=== PATIENT | male | born 1960 | race African-American/Black ===

== ENCOUNTER 2017-08-15 14:33 | Outpatient (CLI) | payer OTHER ==
--- NOTE | 2017-08-15 15:01 | RAD ---
LUMBAR SPINE THREE VIEWS: History: Low back pain. Comparison: None. FINDINGS: Five non-rib bearing lumbar type vertebrae. 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 Normal narrow ing L5-S1 and L4-5. Mild vascular calcifications of the aorta. No acute fracture or malalignment. There are surgical clips projecting over the left upper quadrant of the abdomen. There is a punctate calcification projecting over the right renal pelvis. IMPRESSION: 1. Mild spondylosis. No acute fracture or malalignment. 2. Punctate calcification projecting over the right renal shadow could be vascular in origin, given a similar location of a renal artery calcification on the prior 03-16-17 exam. POS: [facility]
== END 2017-08-15 14:34 | disposition home or self-care (01) ==
LOC: RAD-FRANK 14:33
PROVIDERS: ATTEND Internal Medicine
DX: M54.9 Dorsalgia, unspecified (principal); M47.816 Spondylosis without myelopathy or radiculopathy, lumbar region
CPT/HCPCS: 72100

== ENCOUNTER 2021-06-08 20:23 | Emergency (ER) | payer OTHER ==
[2021-06-08 23:48] LABS: #Lymphocytes 1.3 thou/uL (1.20-3.40); #Monocytes 0.8 thou/uL (0.11-0.59); #Neutrophils 5.1 thou/uL (1.40-6.50); %Basophils 0.1 % (0.0-1.0); %Eosinophils 0.4 % (0.0-10.0); %Lymphocytes 18.4 % (21.0-51.0); %Monocytes 10.8 % (0.0-10.0); %Neutrophils 70.3 % (42.0-75.0); Hemoglobin 13.9 g/dL (14.0-18.0); Mean Corpuscular Hemoglobin 32.6 pg (27.0-31.0); Mean Corpuscular Volume 95.7 fL (78.0-98.0); Mean Platelet Volume 7.9 fL (7.4-10.4); Platelet Count 233 thou/uL (130-400); Red Blood Cell (RBC) Count 4.28 mill/uL (4.70-6.10); White Blood Cell (WBC) Count 7.3 thou/uL (4.8-10.8)
[2021-06-09 00:12] LABS: ALT (SGPT) 15 U/L (8-55); AST (SGOT) 22 U/L (5-34); Albumin 4.4 g/dL (3.5-5.0); Alkaline Phosphatase 90 U/L (40-110); Anion Gap 12 mmol/L (10-20); BUN (Urea Nitrogen) 27 mg/dL (8.4-25.7); Bilirubin, Total 0.5 mg/dL (0.2-1.2); Calc. Creatinine Clearance 0 mL/min (70-130); Calcium 10.7 mg/dL (7.8-10.44); Carbon Dioxide 29 mmol/L (22-29); Chloride 102 mmol/L (98-107); Globulin 4.8 g/dL (2.4-3.5); Glucose 96 mg/dL (70-105); Potassium 4.3 mmol/L (3.5-5.1); Protein, Total 9.2 g/dL (6.0-8.3); Sodium 139 mmol/L (136-145)
[2021-06-09] MEDS ORDERED: Acetaminophen 500 MG TAB ONE (00:15)
== END 2021-06-09 02:59 | disposition home or self-care (01) ==
LOC: ERS 20:23
DX: I73.9 Peripheral vascular disease, unspecified (principal)
CPT/HCPCS: 36415; 80053; 85025; 85379; 93923

== ENCOUNTER 2021-06-10 08:08 | Outpatient (CLI) | payer MEDICARE ==
[2021-06-10] MEDS ORDERED: Iopamidol 370 76% 100 ML VIAL ONE (11:08)
== END 2021-06-10 08:09 | disposition home or self-care (01) ==
LOC: CT 08:08
PROVIDERS: ATTEND Thoracic Surgery (Cardiothoracic Vascular Surgery)
DX: I25.110 Atherosclerotic heart disease of native coronary artery with unstable angina pectoris (principal); T82.9XXA Unspecified complication of cardiac and vascular prosthetic device, implant and graft, initial encounter; K91.89 Other postprocedural complications and disorders of digestive system; I77.9 Disorder of arteries and arterioles, unspecified
CPT/HCPCS: 75635; Q9967

== ENCOUNTER 2021-06-16 12:45 | Inpatient (IN) | payer MEDICARE, MEDICAID ==
[2021-06-16 12:06] LABS: Hemoglobin 12.7 g/dL (13.5-17.5); Mean Corpuscular Hemoglobin 31.3 pg (27.0-33.0); Mean Corpuscular Volume 94.8 fl (81.2-95.1); Mean Platelet Volume 9.8 fl (7.4-10.4); Platelet Count 284 10x3/uL (150-450); RBC Distribution Width 11.4 % (11.5-14.5); Red Blood Cell (RBC) Count 4.06 10x6/uL (4.32-5.72); White Blood Cell (WBC) Count 7.7 10x3/uL (3.5-10.5)
[2021-06-16 12:15] LABS: Anion Gap 17 mmol/L (10-20); BUN (Urea Nitrogen) 17 mg/dL (8.4-25.7); Calc. Creatinine Clearance 0 mL/min (70-130); Calcium 10.8 mg/dL (7.8-10.44); Carbon Dioxide 24 mmol/L (22-29); Chloride 107 mmol/L (98-107); Glucose 119 mg/dL (70-105); Potassium 4.8 mmol/L (3.5-5.1); Sodium 143 mmol/L (136-145)
[2021-06-20 11:45] VITALS: BMI 27.0
[2021-06-21] MEDS ORDERED: Protamine Sulfate 50 MG/5 ML VIAL ONE (08:33)
[2021-06-21] MEDS ORDERED: Heparin 5,000 UNITS/ML VIAL ONE (08:33)
[2021-06-21] MEDS ORDERED: Bupivacaine PF 0.5% 30 ML VIAL ONE (08:33)
[2021-06-21] MEDS ORDERED: EPINEPHrine 1 MG/ML AMP ONE (08:33)
[2021-06-21] MEDS ORDERED: Dexamethasone 4 mg/ml Vial ONE (08:33)
[2021-06-21] MEDS ORDERED: Midazolam HCl 2 mg/2 ml Vial ONE (10:23)
[2021-06-21] MEDS ORDERED: Fentanyl 100 MCG/2 ML VIAL ONE ×5 (10:23→14:06)
[2021-06-21] MEDS ORDERED: Ondansetron PF 4 MG/2 ML Vial ONE (10:24)
[2021-06-21] MEDS ORDERED: PROPOFOL 200 MG/20 ML VIAL ONE (10:24)
[2021-06-21] MEDS ORDERED: PHENYLEPHRINE-NS 100 MCG/ML 10 ML SYRINGE ONE ×2 (10:24→11:48)
[2021-06-21] MEDS ORDERED: Dexamethasone 20 MG/5 ML VIAL ONE (10:24)
[2021-06-21] MEDS ORDERED: Promethazine HCl 25 MG/ML VIAL IM PRN ×3 (13:33→15:32)
[2021-06-21] MEDS ORDERED: PACU-Morphine 4MG/ML VIAL SLOW IVP PRN (13:33)
[2021-06-21] MEDS ORDERED: Promethazine HCl 25 MG/ML VIAL IVPB PRN (13:33)
[2021-06-21] MEDS ORDERED: Morphine 4 MG/ML VIAL ONE (14:06)
[2021-06-21] MEDS ORDERED: Fentanyl 100 MCG/2 ML VIAL SLOW IVP PRN ×2 (15:32)
[2021-06-21] MEDS ORDERED: HYDROcodone/Acetaminophen 5/325 mg Tablet PO PRN ×2 (15:32)
[2021-06-21] MEDS ORDERED: Ondansetron PF 4 MG/2 ML Vial IVP PRN (15:32)
[2021-06-21] MEDS ORDERED: Acetaminophen 325 MG TAB PO PRN (15:32)
[2021-06-21] MEDS: Sodium Chloride 0.9% 1,000 ML IV SCH (17:04)
[2021-06-21] MEDS ORDERED: Lisinopril 5 MG TAB PO SCH (17:15)
[2021-06-21] MEDS ORDERED: Metoprolol Tartrate 25 MG TAB PO SCH (17:15)
[2021-06-21] MEDS: HYDROcodone/Acetaminophen 5/325 mg Tablet PO PRN ×2 (17:42→21:36)
[2021-06-21] MEDS: CEFAZOLIN 2 GM in Premix Bag 1 BAG IVPB SCH (17:43)
[2021-06-21] MEDS: Metoprolol Tartrate 25 MG TAB PO SCH (20:45)
[2021-06-21] MEDS: Atorvastatin Calcium 20 MG TAB PO SCH (20:46)
[2021-06-21] MEDS: Isosorbide Dinitrate 5 MG TAB PO SCH (20:46)
[2021-06-22] MEDS: Sodium Chloride 0.9% 1,000 ML IV SCH (00:11)
[2021-06-22] MEDS: CEFAZOLIN 2 GM in Premix Bag 1 BAG IVPB SCH ×2 (00:12→09:40)
[2021-06-22] MEDS: HYDROcodone/Acetaminophen 5/325 mg Tablet PO PRN ×3 (03:47→21:01)
[2021-06-22 07:39] LABS: #Lymphocytes 1.6 thou/uL (1.20-3.40); #Monocytes 1.3 thou/uL (0.11-0.59); #Neutrophils 8.6 thou/uL (1.40-6.50); %Basophils 0.2 % (0.0-1.0); %Eosinophils 0.1 % (0.0-10.0); %Lymphocytes 13.7 % (21.0-51.0); %Monocytes 10.9 % (0.0-10.0); Hemoglobin 11.2 g/dL (14.0-18.0); Mean Corpuscular HGB CONC 32.9 g/dL (32.0-36.0); Mean Corpuscular Hemoglobin 31.4 pg (27.0-31.0); Mean Corpuscular Volume 95.4 fL (78.0-98.0); Mean Platelet Volume 7.2 fL (7.4-10.4); Platelet Count 245 thou/uL (130-400); RBC Distribution Width 10.6 % (11.5-14.5); Red Blood Cell (RBC) Count 3.57 mill/uL (4.70-6.10); White Blood Cell (WBC) Count 11.4 thou/uL (4.8-10.8)
[2021-06-22] MEDS ORDERED: Aspirin 325 mg Enteric Coated Tablet PO SCH (09:00)
[2021-06-22] MEDS: Aspirin Chewable 81 MG TAB PO SCH (09:39)
[2021-06-22] MEDS: Metoprolol Tartrate 25 MG TAB PO SCH ×2 (09:40→21:00)
[2021-06-22] MEDS: Clopidogrel Bisulfate 75 MG TAB PO SCH (09:40)
[2021-06-22] MEDS: Isosorbide Dinitrate 5 MG TAB PO SCH ×2 (09:40→21:00)
[2021-06-22] MEDS: Lisinopril 5 MG TAB PO SCH (09:41)
[2021-06-22] MEDS: Atorvastatin Calcium 20 MG TAB PO SCH (21:00)
[2021-06-23] MEDS: HYDROcodone/Acetaminophen 5/325 mg Tablet PO PRN ×2 (03:23→08:26)
[2021-06-23 07:04] LABS: #Lymphocytes 1.5 thou/uL (1.20-3.40); #Monocytes 1.6 thou/uL (0.11-0.59); #Neutrophils 14.6 thou/uL (1.40-6.50); %Basophils 0.1 % (0.0-1.0); %Eosinophils 0.1 % (0.0-10.0); %Lymphocytes 8.5 % (21.0-51.0); %Monocytes 8.8 % (0.0-10.0); %Neutrophils 82.5 % (42.0-75.0); Hemoglobin 10.7 g/dL (14.0-18.0); Mean Corpuscular HGB CONC 32.6 g/dL (32.0-36.0); Mean Corpuscular Hemoglobin 30.8 pg (27.0-31.0); Mean Corpuscular Volume 94.4 fL (78.0-98.0); Mean Platelet Volume 7.4 fL (7.4-10.4); Platelet Count 256 thou/uL (130-400); RBC Distribution Width 10.6 % (11.5-14.5); Red Blood Cell (RBC) Count 3.48 mill/uL (4.70-6.10); White Blood Cell (WBC) Count 17.7 thou/uL (4.8-10.8)
[2021-06-23] MEDS: Metoprolol Tartrate 25 MG TAB PO SCH (08:25)
[2021-06-23] MEDS: Clopidogrel Bisulfate 75 MG TAB PO SCH (08:25)
[2021-06-23] MEDS: Lisinopril 5 MG TAB PO SCH (08:25)
[2021-06-23] MEDS: Isosorbide Dinitrate 5 MG TAB PO SCH (08:36)
[2021-06-23] MEDS: Aspirin Chewable 81 MG TAB PO SCH (08:36)
[2021-06-23 13:00] VITALS: BP 159/70; TEMP 97.8
== END 2021-06-23 15:33 | disposition home or self-care (01) | DRG 253 ==
LOC: SURG A 06-21 08:03 → EDSTATUS 06-21 12:45 → SURG B 06-21 15:24
PROVIDERS: ADMIT Thoracic Surgery (Cardiothoracic Vascular Surgery); ATTEND Thoracic Surgery (Cardiothoracic Vascular Surgery)
PROC: 041K09M Bypass Right Femoral Artery to Peroneal Artery with Autologous Venous Tissue, Open Approach (ICD-10-PCS; principal; 2021-06-21)
PROC: 06BP0ZZ Excision of Right Saphenous Vein, Open Approach (ICD-10-PCS; 2021-06-21)
PROC: 04CK0ZZ Extirpation of Matter from Right Femoral Artery, Open Approach (ICD-10-PCS; 2021-06-21)
PROC: 04CM0ZZ Extirpation of Matter from Right Popliteal Artery, Open Approach (ICD-10-PCS; 2021-06-21)
DX: T82.868A Thrombosis due to vascular prosthetic devices, implants and grafts, initial encounter (principal); I74.3 Embolism and thrombosis of arteries of the lower extremities; Y83.2 Surgical operation with anastomosis, bypass or graft as the cause of abnormal reaction of the patient, or of later complication, without mention of misadventure at the time of the procedure; I10 Essential (primary) hypertension; E78.5 Hyperlipidemia, unspecified; I25.2 Old myocardial infarction; Z95.810 Presence of automatic (implantable) cardiac defibrillator; Z87.891 Personal history of nicotine dependence; Z79.899 Other long term (current) drug therapy
CPT/HCPCS: 36415; 80048; 85025; 85027; 86850; 86900; 86901; J0171; J0690; J1100; J1642; J1644; J2250; J2270; J2405; J2704; J2720; J3010; J7050; S0020

== ENCOUNTER 2021-06-28 13:26 | Inpatient (IN) | payer MEDICARE, MEDICAID ==
[2021-06-28 16:21] LABS: Hemoglobin 9.4 g/dL (14.0-18.0); Mean Corpuscular HGB CONC 32.7 g/dL (32.0-36.0); Mean Corpuscular Hemoglobin 31.2 pg (27.0-31.0); Mean Corpuscular Volume 95.6 fL (78.0-98.0); Platelet Count 440 thou/uL (130-400); RBC Distribution Width 11.3 % (11.5-14.5); Red Blood Cell (RBC) Count 3.02 mill/uL (4.70-6.10); White Blood Cell (WBC) Count 28.4 thou/uL (4.8-10.8)
[2021-06-28 16:31] LABS: INR-International Normal Ratio 1.1; Prothrombin Time 14.4 sec (12.0-14.7)
[2021-06-28 16:40] LABS: ALT (SGPT) 91 U/L (8-55); AST (SGOT) 247 U/L (5-34); Albumin 3.8 g/dL (3.5-5.0); Alkaline Phosphatase 111 U/L (40-110); Anion Gap 16 mmol/L (10-20); BUN (Urea Nitrogen) 30 mg/dL (8.4-25.7); Bilirubin, Total 0.9 mg/dL (0.2-1.2); Calc. Creatinine Clearance 0 mL/min (70-130); Calcium 9.3 mg/dL (7.8-10.44); Carbon Dioxide 25 mmol/L (22-29); Chloride 100 mmol/L (98-107); Globulin 4.8 g/dL (2.4-3.5); Glucose 110 mg/dL (70-105); Potassium 4.1 mmol/L (3.5-5.1); Protein, Total 8.6 g/dL (6.0-8.3); Sodium 137 mmol/L (136-145)
[2021-06-28 16:48] LABS: Band 24 % (5-11); Lymphocytes 8 % (21-51); MDiff Complete? YES; Monocytes 8 % (0-10); Neutrophil 60 % (42-75); Platelet Morphology Comment Appears Increased; RBC Morphology Normal
[2021-06-28 17:29] LABS: SARS-CoV-2 NAA Rapid Test Not Detected (NotDetected)
[2021-06-28] MEDS ORDERED: Ondansetron ODT 4 MG TAB PO PRN (18:26)
[2021-06-28] MEDS ORDERED: HYDROcodone/Acetaminophen 5/325 mg Tablet PO PRN (18:26)
[2021-06-28] MEDS ORDERED: Piperacillin/Tazobactam 3.375 GM in Sodium Chloride 0.9% 100 ML IVPB SCH ×3 (18:26→21:00)
[2021-06-28] MEDS: Isosorbide Dinitrate 5 MG TAB PO SCH (20:03)
[2021-06-28] MEDS: Metoprolol Tartrate 25 MG TAB PO SCH (20:03)
[2021-06-28] MEDS: Atorvastatin Calcium 20 MG TAB PO SCH (20:03)
[2021-06-28 20:09] VITALS: BMI 26.0
[2021-06-28] MEDS: HYDROcodone/Acetaminophen 5/325 mg Tablet PO PRN (20:43)
[2021-06-28] MEDS: Piperacillin/Tazobactam 3.375 GM in Sodium Chloride 0.9% 100 ML IVPB SCH (23:45)
[2021-06-29] MEDS: HYDROcodone/Acetaminophen 5/325 mg Tablet PO PRN ×2 (00:52→06:48)
[2021-06-29] MEDS: Piperacillin/Tazobactam 3.375 GM in Sodium Chloride 0.9% 100 ML IVPB SCH ×2 (06:46→14:25)
[2021-06-29] MEDS: Fentanyl 100 MCG/2 ML VIAL SLOW IVP PRN (07:59)
[2021-06-29] MEDS: Metoprolol Tartrate 25 MG TAB PO SCH ×2 (08:00→20:20)
[2021-06-29] MEDS: Aspirin 325 mg Enteric Coated Tablet PO SCH (09:00)
[2021-06-29] MEDS: Lisinopril 5 MG TAB PO SCH (09:00)
[2021-06-29] MEDS: Isosorbide Dinitrate 5 MG TAB PO SCH ×2 (09:00→20:20)
[2021-06-29] MEDS ORDERED: Heparin 5,000 UNITS/ML VIAL ONE (09:37)
[2021-06-29] MEDS ORDERED: Protamine Sulfate 50 MG/5 ML VIAL ONE (09:37)
[2021-06-29] MEDS ORDERED: Fentanyl 100 MCG/2 ML VIAL ONE ×3 (10:56→11:15)
[2021-06-29] MEDS ORDERED: Famotidine/PF 20 mg/2ml Vial ONE (11:15)
[2021-06-29] MEDS ORDERED: Phenylephrine 10 MG/ML VIAL ONE (11:25)
[2021-06-29] MEDS ORDERED: Ondansetron PF 4 MG/2 ML Vial ONE (12:14)
[2021-06-29] MEDS ORDERED: PHENYLEPHRINE-NS 100 MCG/ML 10 ML SYRINGE ONE (12:14)
[2021-06-29] MEDS ORDERED: Rocuronium Bromide 10 MG/ML (10ML VIAL) ONE (12:14)
[2021-06-29] MEDS ORDERED: Ropivacaine 0.5% HCl/PF (150 MG/30 ML VIAL) ONE (12:14)
[2021-06-29] MEDS ORDERED: Lidocaine 1% PF 5 ML VIAL ONE (12:14)
[2021-06-29] MEDS ORDERED: Glycopyrrolate 0.2 MG/ML 5 ML SYRINGE ONE (12:14)
[2021-06-29] MEDS ORDERED: PROPOFOL 200 MG/20 ML VIAL ONE (12:14)
[2021-06-29] MEDS ORDERED: HYDROmorphone 2 MG/ML VIAL SLOW IVP PRN (13:28)
[2021-06-29] MEDS ORDERED: Meperidine HCl/PF 25 MG/ML VIAL SLOW IVP PRN (13:28)
[2021-06-29] MEDS ORDERED: Promethazine HCl 25 MG/ML VIAL IM PRN (13:28)
[2021-06-29] MEDS ORDERED: Promethazine HCl 25 MG/ML VIAL IVPB PRN (13:28)
[2021-06-29] MEDS: Atorvastatin Calcium 20 MG TAB PO SCH (20:20)
[2021-06-30] MEDS: HYDROcodone/Acetaminophen 5/325 mg Tablet PO PRN ×4 (00:10→22:04)
[2021-06-30] MEDS: Piperacillin/Tazobactam 3.375 GM in Sodium Chloride 0.9% 100 ML IVPB SCH ×4 (00:11→23:59)
[2021-06-30] MEDS: Isosorbide Dinitrate 5 MG TAB PO SCH ×2 (09:07→22:06)
[2021-06-30] MEDS: Lisinopril 5 MG TAB PO SCH (09:07)
[2021-06-30] MEDS: Metoprolol Tartrate 25 MG TAB PO SCH ×2 (09:08→22:05)
[2021-06-30] MEDS: Aspirin 81 mg Enteric Coated Tablet PO SCH (09:16)
[2021-06-30] MEDS: Aspirin 325 mg Enteric Coated Tablet PO SCH (10:15)
[2021-06-30] MEDS: Atorvastatin Calcium 20 MG TAB PO SCH (22:05)
[2021-07-01] MEDS: Piperacillin/Tazobactam 3.375 GM in Sodium Chloride 0.9% 100 ML IVPB SCH ×3 (07:22→23:40)
[2021-07-01] MEDS: HYDROcodone/Acetaminophen 5/325 mg Tablet PO PRN ×3 (07:22→21:31)
[2021-07-01] MEDS: Aspirin 81 mg Enteric Coated Tablet PO SCH (09:07)
[2021-07-01] MEDS: Metoprolol Tartrate 25 MG TAB PO SCH ×2 (09:07→21:26)
[2021-07-01] MEDS: Lisinopril 5 MG TAB PO SCH (09:07)
[2021-07-01] MEDS: Isosorbide Dinitrate 5 MG TAB PO SCH ×2 (09:07→21:26)
[2021-07-01] MEDS: Atorvastatin Calcium 20 MG TAB PO SCH (21:26)
[2021-07-02] MEDS: Piperacillin/Tazobactam 3.375 GM in Sodium Chloride 0.9% 100 ML IVPB SCH ×3 (06:35→23:39)
[2021-07-02] MEDS: HYDROcodone/Acetaminophen 5/325 mg Tablet PO PRN ×4 (06:43→20:40)
[2021-07-02] MEDS: Aspirin 81 mg Enteric Coated Tablet PO SCH (08:25)
[2021-07-02] MEDS: Isosorbide Dinitrate 5 MG TAB PO SCH ×2 (08:26→20:40)
[2021-07-02] MEDS: Lisinopril 5 MG TAB PO SCH (08:26)
[2021-07-02] MEDS: Metoprolol Tartrate 25 MG TAB PO SCH ×2 (08:26→20:40)
[2021-07-02] MEDS: Atorvastatin Calcium 20 MG TAB PO SCH (20:40)
[2021-07-03] MEDS: HYDROcodone/Acetaminophen 5/325 mg Tablet PO PRN ×5 (04:09→23:49)
[2021-07-03] MEDS: Piperacillin/Tazobactam 3.375 GM in Sodium Chloride 0.9% 100 ML IVPB SCH ×3 (06:30→23:50)
[2021-07-03] MEDS: Fentanyl 100 MCG/2 ML VIAL SLOW IVP PRN (06:33)
[2021-07-03] MEDS: Lisinopril 5 MG TAB PO SCH (08:53)
[2021-07-03] MEDS: Aspirin 81 mg Enteric Coated Tablet PO SCH (08:53)
[2021-07-03] MEDS: Metoprolol Tartrate 25 MG TAB PO SCH ×2 (08:53→20:59)
[2021-07-03] MEDS: Isosorbide Dinitrate 5 MG TAB PO SCH ×2 (08:56→20:59)
[2021-07-03] MEDS: Atorvastatin Calcium 20 MG TAB PO SCH (20:59)
[2021-07-04] MEDS: Isosorbide Dinitrate 5 MG TAB PO SCH ×2 (09:47→22:16)
[2021-07-04] MEDS: Aspirin 81 mg Enteric Coated Tablet PO SCH (09:47)
[2021-07-04] MEDS: Lisinopril 5 MG TAB PO SCH (09:47)
[2021-07-04] MEDS: Metoprolol Tartrate 25 MG TAB PO SCH ×2 (09:47→22:16)
[2021-07-04] MEDS: HYDROcodone/Acetaminophen 5/325 mg Tablet PO PRN ×3 (11:46→22:16)
[2021-07-04] MEDS: Atorvastatin Calcium 20 MG TAB PO SCH (22:17)
[2021-07-05] MEDS: HYDROcodone/Acetaminophen 5/325 mg Tablet PO PRN ×4 (05:22→22:37)
[2021-07-05] MEDS: Metoprolol Tartrate 25 MG TAB PO SCH ×2 (09:30→20:47)
[2021-07-05] MEDS: Isosorbide Dinitrate 5 MG TAB PO SCH ×2 (09:30→20:47)
[2021-07-05] MEDS: Lisinopril 5 MG TAB PO SCH (09:30)
[2021-07-05] MEDS: Aspirin 81 mg Enteric Coated Tablet PO SCH (09:30)
[2021-07-05] MEDS: Fentanyl 100 MCG/2 ML VIAL SLOW IVP PRN (20:46)
[2021-07-05] MEDS: Atorvastatin Calcium 20 MG TAB PO SCH (20:47)
[2021-07-06 00:29] LABS: SARS-CoV-2 PCR by NAA Not Detected (NotDetected)
[2021-07-06] MEDS: HYDROcodone/Acetaminophen 5/325 mg Tablet PO PRN ×4 (06:01→23:23)
[2021-07-06] MEDS: Isosorbide Dinitrate 5 MG TAB PO SCH ×2 (08:55→19:59)
[2021-07-06] MEDS: Aspirin 81 mg Enteric Coated Tablet PO SCH (08:55)
[2021-07-06] MEDS: Metoprolol Tartrate 25 MG TAB PO SCH ×2 (08:55→20:00)
[2021-07-06] MEDS: Lisinopril 5 MG TAB PO SCH (08:55)
[2021-07-06] MEDS: Fentanyl 100 MCG/2 ML VIAL SLOW IVP PRN ×2 (08:56→18:42)
[2021-07-06] MEDS: Atorvastatin Calcium 20 MG TAB PO SCH (19:59)
[2021-07-07] MEDS: HYDROcodone/Acetaminophen 5/325 mg Tablet PO PRN ×3 (06:42→21:32)
[2021-07-07] MEDS: Metoprolol Tartrate 25 MG TAB PO SCH (10:00)
[2021-07-07] MEDS: Aspirin 81 mg Enteric Coated Tablet PO SCH (10:01)
[2021-07-07] MEDS: Isosorbide Dinitrate 5 MG TAB PO SCH ×2 (10:01→21:34)
[2021-07-07] MEDS: Lisinopril 5 MG TAB PO SCH (10:01)
[2021-07-07] MEDS: Atorvastatin Calcium 20 MG TAB PO SCH (21:29)
[2021-07-08] MEDS: Metoprolol Tartrate 25 MG TAB PO SCH ×3 (01:21→20:13)
[2021-07-08] MEDS: HYDROcodone/Acetaminophen 5/325 mg Tablet PO PRN ×2 (04:25→16:24)
[2021-07-08] MEDS: Isosorbide Dinitrate 5 MG TAB PO SCH ×2 (09:03→20:13)
[2021-07-08] MEDS: Aspirin 81 mg Enteric Coated Tablet PO SCH (09:03)
[2021-07-08] MEDS: Lisinopril 5 MG TAB PO SCH (09:05)
[2021-07-08] MEDS: Atorvastatin Calcium 20 MG TAB PO SCH (20:13)
[2021-07-09 00:21] VITALS: BP 105/65; TEMP 97.7
[2021-07-09] MEDS: HYDROcodone/Acetaminophen 5/325 mg Tablet PO PRN (00:21)
== END 2021-07-09 00:40 | DRG 241 ==
LOC: ERS 13:26 → SURG B 18:21
PROVIDERS: ADMIT Thoracic Surgery (Cardiothoracic Vascular Surgery); ATTEND Thoracic Surgery (Cardiothoracic Vascular Surgery)
PROC: 0Y6C0Z3 Detachment at Right Upper Leg, Low, Open Approach (ICD-10-PCS; principal; 2021-06-29)
DX: I70.261 Atherosclerosis of native arteries of extremities with gangrene, right leg (principal); Z20.822 Contact with and (suspected) exposure to COVID-19; I25.10 Atherosclerotic heart disease of native coronary artery without angina pectoris; I10 Essential (primary) hypertension; E78.5 Hyperlipidemia, unspecified; Z91.041 Radiographic dye allergy status; Z95.1 Presence of aortocoronary bypass graft; Z98.890 Other specified postprocedural states
CPT/HCPCS: 36416; 80053; 85025; 85610; 88307; 99284; J1644; J2370; J2405; J2543; J2704; J2720; J2795; J3010; J3490; S0028; U0002; U0003; U0005

== ENCOUNTER 2021-07-18 01:01 | Inpatient (IN) | payer MEDICARE, MEDICAID ==
[2021-07-18 01:44] LABS: Hemoglobin 9.2 g/dL (14.0-18.0); Mean Corpuscular HGB CONC 33.6 g/dL (32.0-36.0); Mean Corpuscular Hemoglobin 31.1 pg (27.0-31.0); Mean Corpuscular Volume 92.4 fL (78.0-98.0); Mean Platelet Volume 7.8 fL (7.4-10.4); Platelet Count 174 thou/uL (130-400); RBC Distribution Width 12.3 % (11.5-14.5); Red Blood Cell (RBC) Count 2.96 mill/uL (4.70-6.10); White Blood Cell (WBC) Count 16.4 thou/uL (4.8-10.8)
[2021-07-18] MEDS ORDERED: cefTRIAXone\\ROCEPHIN 2 GM VIAL ONE (01:56)
[2021-07-18 01:58] LABS: Band 11 % (5-11); Hypochromia SLIGHT = 6-15 cells (100X) (0-5/hpf); Lymphocytes 8 % (21-51); MDiff Complete? YES; Monocytes 21 % (0-10); Neutrophil 60 % (42-75); Platelet Morphology Comment Appears Adequate
[2021-07-18 02:12] LABS: ALT (SGPT) 17 U/L (8-55); AST (SGOT) 35 U/L (5-34); Albumin 3.1 g/dL (3.5-5.0); Alkaline Phosphatase 82 U/L (40-110); Anion Gap 16 mmol/L (10-20); BUN (Urea Nitrogen) 26 mg/dL (8.4-25.7); Calc. Creatinine Clearance 0 mL/min (70-130); Calcium 8.8 mg/dL (7.8-10.44); Carbon Dioxide 19 mmol/L (22-29); Chloride 107 mmol/L (98-107); Glucose 127 mg/dL (70-105); Magnesium 1.4 mg/dL (1.6-2.6); Potassium 4.3 mmol/L (3.5-5.1); Protein, Total 7.1 g/dL (6.0-8.3); Sodium 138 mmol/L (136-145)
[2021-07-18 02:27] LABS: SARS-CoV-2 NAA Rapid Test Not Detected (NotDetected)
[2021-07-18 02:40] LABS: Bacteria/HPF None Seen HPF (None Seen); Bilirubin Negative (Negative); Blood, Urine Trace (Negative); Clarity Clear (Clear); Glucose, Urine (Dipstick) Normal (Negative); Ketone, Urine Negative (Negative); Leukocyte Negative Leu/uL (Negative); Nitrite Negative (Negative); Protein, Urine (Dipstick) 20 mg/dL (Neg-Trace); RBC/HPF 0-3 HPF (0-3); Specific Gravity, Urine 1.013 (1.002-1.036); Squamous Epithelial 0-3 HPF (0-3); WBC/HPF 0-3 HPF (0-3); pH, Urine 5.5 (5.0-9.0)
[2021-07-18 02:41] LABS: Sperm/HPF 1+ HPF (None Seen)
[2021-07-18] MEDS ORDERED: VANCOMYCIN 2 GRAM/400 ML BAG 2 GM in Premix Bag 1 BAG IVPB SCH (03:00)
[2021-07-18] MEDS ORDERED: Ketorolac Tromethamine 30 MG/ML VIAL ONE (03:07)
[2021-07-18] MEDS ORDERED: Magnesium 2 GM/50 ML BAG (IN WATER) ONE (04:16)
[2021-07-18 05:12] LABS: CSF Source CSF; Clarity Clear (Clear); Tube # 4
[2021-07-18 05:15] LABS: CSF Source CSF; Clarity Clear (Clear); Tube # 1
[2021-07-18 05:21] LABS: CSF, Glucose 71 mg/dl (40-70); CSF, Protein 49 mg/dL (15-40)
[2021-07-18] MEDS ORDERED: Norepinephrine 8 MG/0.9% NS 250 ML ONE (05:45)
[2021-07-18] MEDS ORDERED: Ondansetron PF 4 MG/2 ML Vial IVP PRN (06:02)
[2021-07-18] MEDS ORDERED: Acetaminophen 325 MG TAB PO PRN (06:02)
[2021-07-18 06:12] LABS: Color Of CSF Supernatant COLORLESS (Colorless); Tube # 2; Unspun CSF Color COLORLESS (Colorless)
[2021-07-18] MEDS ORDERED: Sodium Chloride 0.9% 1,000 ML IV SCH (06:15)
[2021-07-18 07:00] LABS: INR-International Normal Ratio 1.3; Prothrombin Time 16.3 sec (12.0-14.7)
[2021-07-18 07:01] LABS: PTT 37.3 sec (22.9-36.1)
[2021-07-18] MEDS ORDERED: Cefepime 2 GM in Sodium Chloride 0.9% 100 ML IVPB SCH (07:30)
[2021-07-18] MEDS ORDERED: Cefepime 2 GM VIAL ONE (07:48)
[2021-07-18] MEDS ORDERED: Acetaminophen 325 MG TAB ONE (08:36)
[2021-07-18 08:40] VITALS: TEMP 99.8
[2021-07-18] MEDS ORDERED: Heparin 5,000 UNITS/ML VIAL SC SCH (09:00)
== END 2021-07-18 12:31 | disposition short-term general hospital (02) | DRG 871 ==
LOC: ERS 01:01 → ERHOLD 04:05
PROVIDERS: ADMIT Internal Medicine; ATTEND Internal Medicine
PROC: 3E043XZ Introduction of Vasopressor into Central Vein, Percutaneous Approach (ICD-10-PCS; principal; 2021-07-18)
PROC: 009U3ZX Drainage of Spinal Canal, Percutaneous Approach, Diagnostic (ICD-10-PCS; 2021-07-18)
PROC: 02HV33Z Insertion of Infusion Device into Superior Vena Cava, Percutaneous Approach (ICD-10-PCS; 2021-07-18)
DX: A41.9 Sepsis, unspecified organism (principal); R65.21 Severe sepsis with septic shock; G93.41 Metabolic encephalopathy; N17.9 Acute kidney failure, unspecified; N13.30 Unspecified hydronephrosis; Z20.822 Contact with and (suspected) exposure to COVID-19; I25.10 Atherosclerotic heart disease of native coronary artery without angina pectoris; D64.9 Anemia, unspecified; E83.42 Hypomagnesemia; I73.9 Peripheral vascular disease, unspecified; Z91.048 Other nonmedicinal substance allergy status; Z79.899 Other long term (current) drug therapy; Z79.82 Long term (current) use of aspirin; Z95.1 Presence of aortocoronary bypass graft; Z95.0 Presence of cardiac pacemaker; Z82.49 Family history of ischemic heart disease and other diseases of the circulatory system; Z87.891 Personal history of nicotine dependence
CPT/HCPCS: 0240U; 36415; 70450; 71045; 74176; 80053; 81003; 81015; 82945; 83605; 83735; 84157; 84484; 85025; 85610; 85730; 86850; 86900; 86901; 87040; 87070; 87077; 87086; 87149; 87186; 87205; 89051; 93005; J0692; J0696; J1644; J1885; J3370; J3475; J3490; J7050

== ENCOUNTER 2021-11-16 09:46 | Inpatient (IN) | payer MEDICARE, MEDICAID ==
[2021-11-16] MEDS ORDERED: Ampicillin/Sulbactam 3 GM in Sodium Chloride 0.9% 100 ML IVPB SCH (10:30)
[2021-11-16 13:07] LABS: Hemoglobin 11.6 g/dL (14.0-18.0); Mean Corpuscular Hemoglobin 29.6 pg (27.0-31.0); Mean Corpuscular Volume 89.7 fL (78.0-98.0); Platelet Count 307 thou/uL (130-400); RBC Distribution Width 13.6 % (11.5-14.5); Red Blood Cell (RBC) Count 3.91 mill/uL (4.70-6.10); White Blood Cell (WBC) Count 5.6 thou/uL (4.8-10.8)
[2021-11-16 13:29] LABS: Anion Gap 15 mmol/L (10-20); BUN (Urea Nitrogen) 13 mg/dL (8.4-25.7); Calc. Creatinine Clearance 107 mL/min (70-130); Calcium 9.4 mg/dL (7.8-10.44); Carbon Dioxide 25 mmol/L (22-29); Chloride 105 mmol/L (98-107); Glucose 82 mg/dL (70-105); Potassium 3.8 mmol/L (3.5-5.1); Sodium 141 mmol/L (136-145)
[2021-11-16] MEDS ORDERED: Bupivacaine PF 0.5% 30 ML VIAL ONE (13:47)
[2021-11-16] MEDS ORDERED: Dexamethasone 4 mg/ml Vial ONE (13:47)
[2021-11-16] MEDS ORDERED: EPINEPHrine 1 MG/ML AMP ONE (13:47)
[2021-11-16] MEDS ORDERED: Fentanyl 250 MCG/5 ML VIAL ONE ×2 (14:45→16:28)
[2021-11-16] MEDS ORDERED: PROPOFOL 200 MG/20 ML VIAL ONE (14:54)
[2021-11-16] MEDS ORDERED: Lidocaine 1% PF 5 ML VIAL ONE (14:54)
[2021-11-16] MEDS ORDERED: PHENYLEPHRINE-NS 100 MCG/ML 10 ML SYRINGE ONE (14:54)
[2021-11-16] MEDS ORDERED: Rocuronium Bromide 10 MG/ML (10ML VIAL) ONE (14:54)
[2021-11-16] MEDS ORDERED: Glycopyrrolate 0.2 MG/ML 5 ML SYRINGE ONE (14:54)
[2021-11-16] MEDS ORDERED: Fentanyl 100 MCG/2 ML VIAL SLOW IVP PRN (16:18)
[2021-11-16] MEDS ORDERED: Ondansetron ODT 4 MG TAB PO PRN (16:18)
[2021-11-16] MEDS ORDERED: HYDROmorphone 0.5 MG/0.5 ML SYRINGE ONE (16:40)
[2021-11-16] MEDS ORDERED: Gabapentin 300 MG CAP ONE ×3 (16:49)
[2021-11-16] MEDS: Gabapentin 300 MG CAP PO SCH ×2 (18:08→20:57)
[2021-11-16] MEDS: Ampicillin/Sulbactam 3 GM in Sodium Chloride 0.9% 100 ML IVPB SCH (18:30)
[2021-11-16] MEDS: Atorvastatin Calcium 20 MG TAB PO SCH (20:58)
[2021-11-16] MEDS: HYDROcodone/Acetaminophen 5/325 mg Tablet PO PRN (20:58)
[2021-11-17] MEDS: Ampicillin/Sulbactam 3 GM in Sodium Chloride 0.9% 100 ML IVPB SCH ×2 (00:21→05:48)
[2021-11-17] MEDS: HYDROcodone/Acetaminophen 5/325 mg Tablet PO PRN ×5 (01:10→20:39)
[2021-11-17 04:55] LABS: #Lymphocytes 1.3 thou/uL (1.20-3.40); #Monocytes 0.8 thou/uL (0.11-0.59); #Neutrophils 6.4 thou/uL (1.40-6.50); %Basophils 0.2 % (0.0-1.0); %Eosinophils 0.4 % (0.0-10.0); %Lymphocytes 15.7 % (21.0-51.0); %Monocytes 8.9 % (0.0-10.0); %Neutrophils 74.7 % (42.0-75.0); Hemoglobin 9.2 g/dL (14.0-18.0); Mean Corpuscular HGB CONC 33.5 g/dL (32.0-36.0); Mean Corpuscular Hemoglobin 29.8 pg (27.0-31.0); Mean Platelet Volume 6.8 fL (7.4-10.4); Platelet Count 284 thou/uL (130-400); RBC Distribution Width 13.6 % (11.5-14.5); Red Blood Cell (RBC) Count 3.09 mill/uL (4.70-6.10); White Blood Cell (WBC) Count 8.5 thou/uL (4.8-10.8)
[2021-11-17] MEDS: Lisinopril 5 MG TAB PO SCH (08:15)
[2021-11-17] MEDS: Gabapentin 300 MG CAP PO SCH ×4 (08:16→20:39)
[2021-11-17] MEDS: Aspirin Chewable 81 MG TAB PO SCH (08:17)
[2021-11-17] MEDS: Metoprolol Tartrate 50 MG TAB PO SCH (08:17)
[2021-11-17] MEDS ORDERED: Apixaban 5 MG TAB PO SCH (09:00)
[2021-11-17] MEDS ORDERED: Meropenem 1 GM in Sodium Chloride 0.9% 100 ML IVPB SCH (09:00)
[2021-11-17] MEDS ORDERED: Meropenem 2 GM in Admixture Fee 1 EACH IVPB SCH (09:00)
[2021-11-17] MEDS: Meropenem 1 GM in Sodium Chloride 0.9% 100 ML IVPB SCH (17:36)
[2021-11-17] MEDS: Atorvastatin Calcium 20 MG TAB PO SCH (20:38)
[2021-11-18] MEDS: Fentanyl 100 MCG/2 ML VIAL SLOW IVP PRN (01:17)
[2021-11-18] MEDS: Meropenem 1 GM in Sodium Chloride 0.9% 100 ML IVPB SCH ×3 (01:17→17:18)
[2021-11-18] MEDS ORDERED: Ketamine 50 MG/ML (10ML VIAL) ONE (07:10)
[2021-11-18] MEDS ORDERED: Midazolam HCl 2 mg/2 ml Vial ONE (07:10)
[2021-11-18] MEDS ORDERED: Fentanyl 250 MCG/5 ML VIAL ONE (08:06)
[2021-11-18] MEDS: Gabapentin 300 MG CAP PO SCH ×4 (09:16→22:02)
[2021-11-18] MEDS: Lisinopril 5 MG TAB PO SCH (09:16)
[2021-11-18] MEDS ORDERED: Non-Formulary Medication 1 EACH PO PRN (09:16)
[2021-11-18] MEDS: Metoprolol Tartrate 50 MG TAB PO SCH (09:16)
[2021-11-18] MEDS: Aspirin Chewable 81 MG TAB PO SCH (09:16)
[2021-11-18] MEDS ORDERED: Promethazine HCl 25 MG/ML VIAL IM/IV PRN (09:30)
[2021-11-18] MEDS ORDERED: Ondansetron HCl/PF 4 MG/2 ML Vial IVP PRN (09:30)
[2021-11-18] MEDS: HYDROcodone/Acetaminophen 5/325 mg Tablet PO PRN ×2 (13:33→22:04)
[2021-11-18] MEDS: Atorvastatin Calcium 20 MG TAB PO SCH (22:02)
[2021-11-19] MEDS: Meropenem 1 GM in Sodium Chloride 0.9% 100 ML IVPB SCH ×3 (01:31→16:41)
[2021-11-19] MEDS: Aspirin Chewable 81 MG TAB PO SCH (08:21)
[2021-11-19] MEDS: Gabapentin 300 MG CAP PO SCH ×4 (08:21→21:35)
[2021-11-19] MEDS: Lisinopril 5 MG TAB PO SCH (08:21)
[2021-11-19] MEDS: Metoprolol Tartrate 50 MG TAB PO SCH (08:22)
[2021-11-19] MEDS: Bisacodyl 5 MG TAB PO PRN (08:22)
[2021-11-19] MEDS: HYDROcodone/Acetaminophen 5/325 mg Tablet PO PRN ×3 (12:39→21:37)
[2021-11-19] MEDS: Enoxaparin Sodium 40 MG/0.4 ML SYRINGE SC SCH (21:36)
[2021-11-19] MEDS: Atorvastatin Calcium 20 MG TAB PO SCH (21:36)
[2021-11-20] MEDS: Meropenem 1 GM in Sodium Chloride 0.9% 100 ML IVPB SCH ×3 (00:59→17:39)
[2021-11-20] MEDS: Lisinopril 5 MG TAB PO SCH (10:20)
[2021-11-20] MEDS: Aspirin Chewable 81 MG TAB PO SCH (10:21)
[2021-11-20] MEDS: Gabapentin 300 MG CAP PO SCH ×4 (10:21→21:12)
[2021-11-20] MEDS: Metoprolol Tartrate 50 MG TAB PO SCH (10:21)
[2021-11-20] MEDS: Bisacodyl 5 MG TAB PO PRN (10:21)
[2021-11-20] MEDS: HYDROcodone/Acetaminophen 5/325 mg Tablet PO PRN ×2 (11:02→21:13)
[2021-11-20] MEDS: Fentanyl 100 MCG/2 ML VIAL SLOW IVP PRN (14:33)
[2021-11-20] MEDS: Atorvastatin Calcium 20 MG TAB PO SCH (21:12)
[2021-11-20] MEDS: Enoxaparin Sodium 40 MG/0.4 ML SYRINGE SC SCH (21:12)
[2021-11-21] MEDS: Meropenem 1 GM in Sodium Chloride 0.9% 100 ML IVPB SCH ×3 (02:20→16:58)
[2021-11-21] MEDS: Metoprolol Tartrate 50 MG TAB PO SCH (05:53)
[2021-11-21] MEDS ORDERED: Fentanyl 250 MCG/5 ML VIAL ONE ×2 (06:54→08:25)
[2021-11-21] MEDS ORDERED: PROPOFOL 200 MG/20 ML VIAL ONE (07:35)
[2021-11-21] MEDS ORDERED: Dexamethasone 20 MG/5 ML VIAL ONE (07:35)
[2021-11-21] MEDS ORDERED: Lidocaine 1% PF 5 ML VIAL ONE (07:35)
[2021-11-21] MEDS ORDERED: Rocuronium Bromide 10 MG/ML (10ML VIAL) ONE (07:35)
[2021-11-21] MEDS ORDERED: Succinylcholine 200 MG/10 ml SYRINGE FS ONE (07:35)
[2021-11-21] MEDS ORDERED: Ondansetron PF 4 MG/2 ML Vial ONE (07:35)
[2021-11-21] MEDS ORDERED: Non-Formulary Medication 1 EACH PO PRN (08:35)
[2021-11-21] MEDS ORDERED: Promethazine HCl 25 MG/ML VIAL IM/IV PRN (08:45)
[2021-11-21] MEDS ORDERED: Ondansetron HCl/PF 4 MG/2 ML Vial IVP PRN (08:45)
[2021-11-21] MEDS ORDERED: PACU-Morphine 4MG/ML VIAL SLOW IVP PRN (08:45)
[2021-11-21] MEDS ORDERED: Morphine Sulfate 2 MG/ML SYRINGE SLOW IVP PRN (08:45)
[2021-11-21] MEDS: Aspirin Chewable 81 MG TAB PO SCH (11:01)
[2021-11-21] MEDS: Lisinopril 5 MG TAB PO SCH (11:02)
[2021-11-21] MEDS: Gabapentin 300 MG CAP PO SCH ×4 (11:02→21:07)
[2021-11-21] MEDS: HYDROcodone/Acetaminophen 5/325 mg Tablet PO PRN (20:01)
[2021-11-21] MEDS: Atorvastatin Calcium 20 MG TAB PO SCH (21:09)
[2021-11-22] MEDS: Meropenem 1 GM in Sodium Chloride 0.9% 100 ML IVPB SCH ×3 (01:21→16:16)
[2021-11-22] MEDS: Metoprolol Tartrate 50 MG TAB PO SCH (09:02)
[2021-11-22] MEDS: Aspirin Chewable 81 MG TAB PO SCH (09:02)
[2021-11-22] MEDS: Lisinopril 5 MG TAB PO SCH (09:02)
[2021-11-22] MEDS: Apixaban 5 MG TAB PO SCH ×2 (09:02→20:07)
[2021-11-22] MEDS: Gabapentin 300 MG CAP PO SCH ×4 (09:02→20:07)
[2021-11-22] MEDS: HYDROcodone/Acetaminophen 5/325 mg Tablet PO PRN ×2 (09:07→16:15)
[2021-11-22] MEDS ORDERED: Promethazine HCl 12.5 MG in Sodium Chloride 0.9% 50 ML IVPB PRN (16:51)
[2021-11-22] MEDS: Ciprofloxacin 500 MG TAB PO SCH (20:07)
[2021-11-22] MEDS: Atorvastatin Calcium 20 MG TAB PO SCH (20:07)
[2021-11-23] MEDS: Meropenem 1 GM in Sodium Chloride 0.9% 100 ML IVPB SCH ×2 (01:14→08:52)
[2021-11-23] MEDS: Ciprofloxacin 500 MG TAB PO SCH ×2 (05:15→20:07)
[2021-11-23] MEDS: Metoprolol Tartrate 50 MG TAB PO SCH (08:45)
[2021-11-23] MEDS: Lisinopril 5 MG TAB PO SCH (08:45)
[2021-11-23] MEDS: Aspirin Chewable 81 MG TAB PO SCH (08:45)
[2021-11-23] MEDS: Gabapentin 300 MG CAP PO SCH ×4 (08:46→20:07)
[2021-11-23] MEDS: Apixaban 5 MG TAB PO SCH ×2 (08:46→20:07)
[2021-11-23] MEDS: HYDROcodone/Acetaminophen 5/325 mg Tablet PO PRN ×2 (10:02→15:20)
[2021-11-23] MEDS: Atorvastatin Calcium 20 MG TAB PO SCH (20:07)
[2021-11-24] MEDS: Ciprofloxacin 500 MG TAB PO SCH ×2 (05:41→20:11)
[2021-11-24] MEDS: Gabapentin 300 MG CAP PO SCH ×4 (09:31→20:11)
[2021-11-24] MEDS: Apixaban 5 MG TAB PO SCH ×2 (09:31→20:11)
[2021-11-24] MEDS: Aspirin Chewable 81 MG TAB PO SCH (09:31)
[2021-11-24] MEDS: Metoprolol Tartrate 50 MG TAB PO SCH (09:31)
[2021-11-24] MEDS: Lisinopril 5 MG TAB PO SCH (09:31)
[2021-11-24 14:12] VITALS: BMI 23.3
[2021-11-24] MEDS: HYDROcodone/Acetaminophen 5/325 mg Tablet PO PRN (16:27)
[2021-11-24] MEDS: Atorvastatin Calcium 20 MG TAB PO SCH (20:11)
[2021-11-25] MEDS: Ciprofloxacin 500 MG TAB PO SCH ×2 (05:59→20:57)
[2021-11-25] MEDS: Lisinopril 5 MG TAB PO SCH (08:42)
[2021-11-25] MEDS: Aspirin Chewable 81 MG TAB PO SCH (08:42)
[2021-11-25] MEDS: Apixaban 5 MG TAB PO SCH ×2 (08:42→20:57)
[2021-11-25] MEDS: Metoprolol Tartrate 50 MG TAB PO SCH (08:42)
[2021-11-25] MEDS: HYDROcodone/Acetaminophen 5/325 mg Tablet PO PRN ×2 (09:45→16:10)
[2021-11-25] MEDS: Gabapentin 300 MG CAP PO SCH ×4 (16:08→20:57)
[2021-11-25] MEDS: Atorvastatin Calcium 20 MG TAB PO SCH (20:57)
[2021-11-26] MEDS: Ciprofloxacin 500 MG TAB PO SCH (05:47)
[2021-11-26] MEDS: HYDROcodone/Acetaminophen 5/325 mg Tablet PO PRN (08:16)
[2021-11-26] MEDS: Gabapentin 300 MG CAP PO SCH ×2 (08:17→12:46)
[2021-11-26] MEDS: Metoprolol Tartrate 50 MG TAB PO SCH (09:14)
[2021-11-26] MEDS: Lisinopril 5 MG TAB PO SCH (09:14)
[2021-11-26] MEDS: Apixaban 5 MG TAB PO SCH (09:14)
[2021-11-26] MEDS: Aspirin Chewable 81 MG TAB PO SCH (09:14)
[2021-11-26 11:21] VITALS: BP 136/67; TEMP 98.1
== END 2021-11-26 14:00 | disposition home health service (06) | DRG 253 ==
LOC: SURG A 09:46 → EDSTATUS 15:40 → 2NO 19:09
PROVIDERS: ADMIT Thoracic Surgery (Cardiothoracic Vascular Surgery); ATTEND Thoracic Surgery (Cardiothoracic Vascular Surgery)
PROC: 04PY0JZ Removal of Synthetic Substitute from Lower Artery, Open Approach (ICD-10-PCS; principal; 2021-11-16)
PROC: 3E03329 Introduction of Other Anti-infective into Peripheral Vein, Percutaneous Approach (ICD-10-PCS; 2021-11-16)
PROC: 0J9C0ZZ Drainage of Pelvic Region Subcutaneous Tissue and Fascia, Open Approach (ICD-10-PCS; 2021-11-18)
PROC: 0J9C0ZZ Drainage of Pelvic Region Subcutaneous Tissue and Fascia, Open Approach (ICD-10-PCS; 2021-11-21)
DX: T82.7XXA Infection and inflammatory reaction due to other cardiac and vascular devices, implants and grafts, initial encounter (principal); I25.110 Atherosclerotic heart disease of native coronary artery with unstable angina pectoris; I74.3 Embolism and thrombosis of arteries of the lower extremities; I70.261 Atherosclerosis of native arteries of extremities with gangrene, right leg; Z20.822 Contact with and (suspected) exposure to COVID-19; Y83.2 Surgical operation with anastomosis, bypass or graft as the cause of abnormal reaction of the patient, or of later complication, without mention of misadventure at the time of the procedure; I70.222 Atherosclerosis of native arteries of extremities with rest pain, left leg; E78.5 Hyperlipidemia, unspecified; E78.2 Mixed hyperlipidemia; F17.210 Nicotine dependence, cigarettes, uncomplicated; B96.5 Pseudomonas (aeruginosa) (mallei) (pseudomallei) as the cause of diseases classified elsewhere; B96.20 Unspecified Escherichia coli [E. coli] as the cause of diseases classified elsewhere; B96.1 Klebsiella pneumoniae [K. pneumoniae] as the cause of diseases classified elsewhere; Z79.899 Other long term (current) drug therapy; Z79.01 Long term (current) use of anticoagulants; Z79.82 Long term (current) use of aspirin; Z83.3 Family history of diabetes mellitus; Z82.49 Family history of ischemic heart disease and other diseases of the circulatory system; Z80.9 Family history of malignant neoplasm, unspecified; Z91.048 Other nonmedicinal substance allergy status; Z95.810 Presence of automatic (implantable) cardiac defibrillator; Z89.611 Acquired absence of right leg above knee; Z95.1 Presence of aortocoronary bypass graft; I25.2 Old myocardial infarction
CPT/HCPCS: 36415; 36416; 80048; 85025; 85027; 87070; 87205; C1776; J0171; J0295; J1100; J1170; J1650; J2185; J2250; J2405; J2704; J3010; J3490; S0020; U0003; U0005

== ENCOUNTER 2022-04-20 14:48 | Emergency (ER) | payer MEDICARE, MEDICAID ==
[2022-04-20 16:02] LABS: #Eosinphils 0.1 thou/uL (0.0-0.7); #Lymphocytes 1.7 thou/uL (1.20-3.40); #Monocytes 0.7 thou/uL (0.11-0.59); #Neutrophils 4.2 thou/uL (1.40-6.50); %Basophils 0.5 % (0.0-1.0); %Monocytes 10.4 % (0.0-10.0); %Neutrophils 63.1 % (42.0-75.0); Mean Corpuscular Hemoglobin 31.3 pg (27.0-31.0); Mean Corpuscular Volume 95.1 fL (78.0-98.0); Mean Platelet Volume 7.8 fL (7.4-10.4); Platelet Count 209 thou/uL (130-400); RBC Distribution Width 11.4 % (11.5-14.5); Red Blood Cell (RBC) Count 3.82 mill/uL (4.70-6.10); White Blood Cell (WBC) Count 6.7 thou/uL (4.8-10.8)
[2022-04-20 16:23] LABS: ALT (SGPT) 25 U/L (8-55); AST (SGOT) 20 U/L (5-34); Albumin 3.9 g/dL (3.5-5.0); Alkaline Phosphatase 90 U/L (40-110); Anion Gap 12 mmol/L (10-20); BUN (Urea Nitrogen) 17 mg/dL (8.4-25.7); Bilirubin, Total 0.6 mg/dL (0.2-1.2); Calc. Creatinine Clearance 0 mL/min (70-130); Calcium 9.9 mg/dL (7.8-10.44); Carbon Dioxide 30 mmol/L (22-29); Chloride 103 mmol/L (98-107); Estimated GFR 93; Globulin 5.1 g/dL (2.4-3.5); Glucose 91 mg/dL (70-105); Potassium 4.1 mmol/L (3.5-5.1); Sodium 141 mmol/L (136-145)
== END 2022-04-20 17:53 | disposition home or self-care (01) ==
LOC: ERS 14:48
DX: I73.9 Peripheral vascular disease, unspecified (principal); I25.2 Old myocardial infarction
CPT/HCPCS: 36415; 80053; 83880; 85025

== ENCOUNTER 2022-04-26 07:54 | Day surgery (SDC) | payer OTHER, MEDICAID ==
[2022-04-24 11:14] VITALS: BMI 22.3
[2022-04-26] MEDS ORDERED: PROPOFOL 200 MG/20 ML VIAL ONE (09:14)
== END 2022-04-26 10:50 | disposition home or self-care (01) ==
LOC: SDC 07:54
PROVIDERS: ATTEND Internal Medicine Gastroenterology
PROC: 0DJ08ZZ Inspection of Upper Intestinal Tract, Via Natural or Artificial Opening Endoscopic (ICD-10-PCS; principal; 2022-04-26)
PROC: 0DJD8ZZ Inspection of Lower Intestinal Tract, Via Natural or Artificial Opening Endoscopic (ICD-10-PCS; 2022-04-26)
DX: K57.31 Diverticulosis of large intestine without perforation or abscess with bleeding (principal); D50.9 Iron deficiency anemia, unspecified; K64.0 First degree hemorrhoids; I10 Essential (primary) hypertension; I25.10 Atherosclerotic heart disease of native coronary artery without angina pectoris; Z79.01 Long term (current) use of anticoagulants; Z79.2 Long term (current) use of antibiotics; Z79.82 Long term (current) use of aspirin; Z79.899 Other long term (current) drug therapy; Z91.041 Radiographic dye allergy status; Z95.1 Presence of aortocoronary bypass graft; Z95.810 Presence of automatic (implantable) cardiac defibrillator; Z20.822 Contact with and (suspected) exposure to COVID-19
CPT/HCPCS: 87811; J2704

== ENCOUNTER 2024-09-26 10:30 | Emergency (ER) | payer MEDICAID, MEDICARE ==
[2024-09-26 11:18] LABS: #Basophils 0.04 10x3/uL (0.0-0.2); #Eosinophils Less than 0.03 10x3/uL (0.0-0.7); %Basophils 0.2 % (0.0-1.0); %Eosinophils 0.1 % (0.0-10.0); %Lymphocytes 5.6 % (21.0-51.0); %Monocytes 8.9 % (0.0-10.0); %Neutrophils 84.5 % (42.0-75.0); Hematocrit 41.4 % (42.0-52.0); Hemoglobin 14.3 g/dL (14.0-18.0); Mean Corpuscular HGB CONC 34.5 g/dL (32.0-36.0); Mean Corpuscular Hemoglobin 31.2 pg (27.0-31.0); Mean Corpuscular Volume 90.2 fL (78.0-98.0); Mean Platelet Volume 10.5 fL (7.4-10.4); Platelet Count 155 10x3/uL (130-400); Red Blood Cell (RBC) Count 4.59 mill/uL (4.70-6.10)
[2024-09-26 11:42] LABS: ALT (SGPT) 41 U/L (8-55); AST (SGOT) 359 U/L (5-34); Albumin 3.1 g/dL (3.4-4.8); Alkaline Phosphatase 90 U/L (40-110); Anion Gap 16 mmol/L (10-20); BUN (Urea Nitrogen) 30 mg/dL (8.4-25.7); Bilirubin, Total 1.6 mg/dL (0.2-1.2); Calc. Creatinine Clearance 0 mL/min (70-130); Calcium 8.7 mg/dL (7.8-10.44); Carbon Dioxide 20 mmol/L (23-31); Chloride 103 mmol/L (98-107); Estimated GFR 35; Globulin 5.5 g/dL (2.4-3.5); Glucose 117 mg/dL (80-115); Potassium 3.9 mmol/L (3.5-5.1); Protein, Total 8.6 g/dL (5.8-8.1); Sodium 135 mmol/L (136-145)
[2024-09-26 11:44] LABS: Troponin I 0.023 ng/mL (< 0.028)
[2024-09-26] MEDS ORDERED: Ketorolac Tromethamine 30 MG (1 mL) VIAL ONE (12:55)
[2024-09-26] MEDS ORDERED: HYDROcodone/Acetaminophen 5/325 mg Tablet ONE (12:55)
== END 2024-09-26 13:38 | disposition home or self-care (01) ==
LOC: ERS 10:30
DX: G54.6 Phantom limb syndrome with pain (principal); R10.32 Left lower quadrant pain; I25.2 Old myocardial infarction; Z95.0 Presence of cardiac pacemaker
CPT/HCPCS: 36415; 74019; 80053; 84484; 85025; 93005; 96374; J1885

== ENCOUNTER 2024-09-28 10:08 | Inpatient (IN) | payer OTHER, MEDICAID ==
[~2024-09-28 10:08] MED LIST: Iopamidol-370 76% 500 ML MDV (1 ML CHARGE) ONE
[2024-09-28 11:18] LABS: #Basophils 0.03 10x3/uL (0.0-0.2); %Basophils 0.2 % (0.0-1.0); %Lymphocytes 4.3 % (21.0-51.0); %Monocytes 12.8 % (0.0-10.0); %Neutrophils 81.1 % (42.0-75.0); Hematocrit 37.6 % (42.0-52.0); Hemoglobin 13.2 g/dL (14.0-18.0); Mean Corpuscular HGB CONC 35.1 g/dL (32.0-36.0); Mean Platelet Volume 10.4 fL (7.4-10.4); Platelet Count 193 10x3/uL (130-400); RBC Distribution Width 12.1 % (11.5-14.5); Red Blood Cell (RBC) Count 4.13 mill/uL (4.70-6.10)
[2024-09-28 11:28] LABS: Clarity Turbid (Clear); Specific Gravity, Urine 1.015 (1.002-1.036)
[2024-09-28 11:29] LABS: Bilirubin 1+ (Negative); Glucose, Urine (Dipstick) Negative (Negative); Ketone, Urine Negative (Negative); Leukocyte Large (Negative); Nitrite 1+ (Negative); Protein, Urine (Dipstick) Greater than 600 mg/dL (Neg-Trace); Urobilinogen Normal mg/dL (Less than 2)
[2024-09-28 11:30] LABS: Blood, Urine Large (Negative)
[2024-09-28 11:33] LABS: CAUTI Indications for Culture Acute Hematuria; RBC/HPF Greater than 50 HPF (0-3); Squamous Epithelial 0-3 HPF (0-3); WBC/HPF Greater than 50 HPF (0-3)
[2024-09-28 11:34] LABS: Bacteria/HPF 4+ HPF (None Seen); Trichomonas/HPF None Seen HPF (None Seen); Urine Culture Reflex Yes Yes; Yeast-Budding None Seen HPF (None Seen)
[2024-09-28 11:42] LABS: ALT (SGPT) 40 U/L (8-55); AST (SGOT) 176 U/L (5-34); Albumin 2.9 g/dL (3.4-4.8); Alkaline Phosphatase 85 U/L (40-110); Anion Gap 15 mmol/L (10-20); BUN (Urea Nitrogen) 36 mg/dL (8.4-25.7); Bilirubin, Total 1.2 mg/dL (0.2-1.2); Calc. Creatinine Clearance 0 mL/min (70-130); Calcium 8.9 mg/dL (7.8-10.44); Carbon Dioxide 23 mmol/L (23-31); Chloride 105 mmol/L (98-107); Estimated GFR 38; Globulin 5.6 g/dL (2.4-3.5); Glucose 119 mg/dL (80-115); Lipase 32 U/L (8-78); Potassium 4.4 mmol/L (3.5-5.1); Protein, Total 8.5 g/dL (5.8-8.1); Sodium 139 mmol/L (136-145)
[2024-09-28] MEDS ORDERED: diphenhydrAMINE 50 MG/ML VIAL ONE (12:06)
[2024-09-28] MEDS ORDERED: methylPREDNISolone Sod Succ 40 MG VIAL ONE (12:06)
[2024-09-28] MEDS ORDERED: Famotidine/PF 20 mg/2ml Vial ONE (12:06)
[2024-09-28] MEDS ORDERED: cefTRIAXone (ROCEPHIN) 1 GM VIAL ONE (14:03)
[2024-09-28] MEDS ORDERED: Sodium Chloride 0.9% 100 ML ONE (14:03)
[2024-09-28] MEDS ORDERED: Ondansetron PF 4 MG/2 ML Vial IVP PRN (16:26)
[2024-09-28] MEDS ORDERED: Ondansetron ODT 4 MG TAB PO PRN (16:26)
[2024-09-28] MEDS ORDERED: Calcium Carbonate 500 MG ChewTAB PO PRN (16:26)
[2024-09-28 17:13] VITALS: BMI 28.8
[2024-09-28] MEDS: Lactated Ringer's 1,000 ML IV SCH (18:00)
[2024-09-28 18:12] LABS: Lactic Acid 0.86 mmol/L (0.5-2.2)
[2024-09-28] MEDS: Polyethylene Glycol 3350 17 GM Packet PO SCH (20:09)
[2024-09-28] MEDS: Apixaban 5 MG TAB PO SCH (20:09)
[2024-09-28] MEDS: Tamsulosin HCl 0.4 MG CAP PO SCH (20:09)
[2024-09-29 06:59] LABS: #Basophils 0.03 10x3/uL (0.0-0.2); #Eosinophils Less than 0.03 10x3/uL (0.0-0.7); %Basophils 0.2 % (0.0-1.0); %Lymphocytes 6.4 % (21.0-51.0); %Monocytes 8.3 % (0.0-10.0); %Neutrophils 84.3 % (42.0-75.0); Hematocrit 40.1 % (42.0-52.0); Hemoglobin 13.7 g/dL (14.0-18.0); Mean Corpuscular HGB CONC 34.2 g/dL (32.0-36.0); Mean Corpuscular Hemoglobin 32.3 pg (27.0-31.0); Mean Corpuscular Volume 94.6 fL (78.0-98.0); Mean Platelet Volume 10.6 fL (7.4-10.4); Platelet Count 206 10x3/uL (130-400); RBC Distribution Width 12.5 % (11.5-14.5); Red Blood Cell (RBC) Count 4.24 mill/uL (4.70-6.10)
[2024-09-29 07:25] LABS: ALT (SGPT) 42 U/L (8-55); AST (SGOT) 136 U/L (5-34); Albumin 2.8 g/dL (3.4-4.8); Alkaline Phosphatase 84 U/L (40-110); Anion Gap 17 mmol/L (10-20); BUN (Urea Nitrogen) 35 mg/dL (8.4-25.7); Bilirubin, Total 0.7 mg/dL (0.2-1.2); Calc. Creatinine Clearance 70 mL/min (70-130); Calcium 9.2 mg/dL (7.8-10.44); Carbon Dioxide 21 mmol/L (23-31); Chloride 109 mmol/L (98-107); Estimated GFR 54; Globulin 5.9 g/dL (2.4-3.5); Glucose 118 mg/dL (80-115); Potassium 4.3 mmol/L (3.5-5.1); Protein, Total 8.7 g/dL (5.8-8.1); Sodium 143 mmol/L (136-145)
[2024-09-29] MEDS: Polyethylene Glycol 3350 17 GM Packet PO SCH (08:04)
[2024-09-29] MEDS: Gabapentin 100 MG CAP PO SCH (08:46)
[2024-09-29] MEDS: Aspirin Chewable 81 MG TAB PO SCH (08:46)
[2024-09-29] MEDS: DULoxetine 30 MG CAP PO SCH (08:46)
[2024-09-29] MEDS ORDERED: cefTRIAXone\\ROCEPHIN 1 GM in Sodium Chloride 0.9% 100 ML IVPB SCH (14:00)
[2024-09-29] MEDS: cefTRIAXone\\ROCEPHIN 2 GM in Sodium Chloride 0.9% 100 ML IVPB SCH (14:23)
[2024-09-29] MEDS: Morphine 2 MG/ML VIAL SLOW IVP PRN (20:10)
[2024-09-30 05:48] LABS: #Basophils 0.06 10x3/uL (0.0-0.2); %Basophils 0.4 % (0.0-1.0); %Eosinophils 1.4 % (0.0-10.0); %Lymphocytes 9.3 % (21.0-51.0); %Monocytes 7.8 % (0.0-10.0); Hematocrit 37.4 % (42.0-52.0); Hemoglobin 12.8 g/dL (14.0-18.0); Mean Corpuscular HGB CONC 34.2 g/dL (32.0-36.0); Mean Corpuscular Hemoglobin 30.8 pg (27.0-31.0); Mean Corpuscular Volume 90.1 fL (78.0-98.0); Mean Platelet Volume 10.5 fL (7.4-10.4); Platelet Count 252 10x3/uL (130-400); RBC Distribution Width 12.2 % (11.5-14.5); Red Blood Cell (RBC) Count 4.15 mill/uL (4.70-6.10)
[2024-09-30 06:10] LABS: Anion Gap 17 mmol/L (10-20); BUN (Urea Nitrogen) 33 mg/dL (8.4-25.7); Calc. Creatinine Clearance 71 mL/min (70-130); Calcium 9.1 mg/dL (7.8-10.44); Carbon Dioxide 21 mmol/L (23-31); Chloride 110 mmol/L (98-107); Estimated GFR 55; Glucose 98 mg/dL (80-115); Potassium 4.8 mmol/L (3.5-5.1); Sodium 143 mmol/L (136-145)
[2024-10-01 05:58] LABS: #Basophils 0.08 10x3/uL (0.0-0.2); %Basophils 0.8 % (0.0-1.0); %Eosinophils 5.4 % (0.0-10.0); %Lymphocytes 13.8 % (21.0-51.0); %Monocytes 11.5 % (0.0-10.0); %Neutrophils 67.1 % (42.0-75.0); Hematocrit 38.1 % (42.0-52.0); Hemoglobin 13.2 g/dL (14.0-18.0); Mean Corpuscular HGB CONC 34.6 g/dL (32.0-36.0); Mean Corpuscular Hemoglobin 31.3 pg (27.0-31.0); Mean Corpuscular Volume 90.3 fL (78.0-98.0); Platelet Count 288 10x3/uL (130-400); RBC Distribution Width 12.4 % (11.5-14.5); Red Blood Cell (RBC) Count 4.22 mill/uL (4.70-6.10)
[2024-10-01 06:13] LABS: Anion Gap 14 mmol/L (10-20); BUN (Urea Nitrogen) 23 mg/dL (8.4-25.7); Calc. Creatinine Clearance 88 mL/min (70-130); Calcium 9.1 mg/dL (7.8-10.44); Carbon Dioxide 24 mmol/L (23-31); Chloride 107 mmol/L (98-107); Estimated GFR 72; Glucose 99 mg/dL (80-115); Potassium 3.8 mmol/L (3.5-5.1); Sodium 141 mmol/L (136-145)
[2024-10-01 16:42] VITALS: BP 113/63; TEMP 97.9
== END 2024-10-01 14:45 | disposition home or self-care (01) | DRG 872 ==
LOC: ERS 10:08 → T4-A 14:57 → OBSVTOIN 14:57
PROVIDERS: ADMIT Internal Medicine; ATTEND Family Medicine
DX: A41.51 Sepsis due to Escherichia coli [E. coli] (principal); N10 Acute pyelonephritis; N13.6 Pyonephrosis; I50.22 Chronic systolic (congestive) heart failure; N17.9 Acute kidney failure, unspecified; R65.20 Severe sepsis without septic shock; N30.80 Other cystitis without hematuria; I11.0 Hypertensive heart disease with heart failure; I25.10 Atherosclerotic heart disease of native coronary artery without angina pectoris; E78.5 Hyperlipidemia, unspecified; D64.9 Anemia, unspecified; R00.0 Tachycardia, unspecified; G54.6 Phantom limb syndrome with pain; I25.5 Ischemic cardiomyopathy; Z95.818 Presence of other cardiac implants and grafts; Z79.899 Other long term (current) drug therapy
CPT/HCPCS: 36415; 74177; 80048; 80053; 81001; 83605; 83690; 85025; 87040; 87077; 87086; 87149; 87186; J0696; J1200; J2272; J2919; J3490; J7120; Q9967